=== PATIENT | male | born 1960 | race Caucasian/White ===

== ENCOUNTER 2017-06-12 04:21 | Emergency (ER) | payer OTHER ==
[2017-06-12] MEDS ORDERED: IBUPROFEN 600 MG TAB PO ONE (04:53)
[2017-06-12] MEDS ORDERED: HYDROCODONE/APAP 5/325 TAB PO ONE (04:53)
--- NOTE | 2017-06-12 04:54 | EDPHY ---
H & P Stated Complaint: left lower back pain Time Seen by Provider: 06/12/17 04:49 HPI/ROS: Chief Complaint: Back pain HPI: 57-year-old male with a history of chronic back pain started having worsening pain this morning while sitting on the toilet. Patient states that he thinks he start exacerbating when he was shoveling snow a week ago. He has been having some intermittent aching pain since then. He does have a history of lumbar disc disease and sciatic symptoms in the past. While on the toilet this morning. Was bearing down to have a bowel movement and he had immediate onset of worse pain in the left side of his back. No new numbness or weakness. No fevers or chills. 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 No difficulty urinating. He has been ambulating with discomfort. ROS: 10 point Review of Systems is negative except as noted in the HPI. Family History: non-contributory Physical Exam: Gen: Awake, Alert, No Distress HEENT: Nose: no rhinorrhea Eyes: PERRLA, EOMI Mouth: Moist mucosa Neck: Supple, no JVD Chest: nontender, lungs clear to auscultation Heart: S1, S2 normal, no murmur Abd: Soft, non-tender, no guarding Back: no CVA tenderness, no midline tenderness he has soft tissue tenderness in the left paraspinal region Ext: no edema, non-tender Skin: no rash Neuro: CN II-XII intact, Sensation grossly intact, Strength 5/5 in bilateral upper and lower extremities, has normal sensation, bilateral extremities, strength is 5 in 5 in flexors and extensors. - Personal History Current Tetanus/Diphtheria Vaccine: Yes - Medical/Surgical History Hx Asthma: No Hx Chronic Respiratory Disease: No Hx Diabetes: No Hx Cardiac Disease: No Hx Renal Disease: No Hx Cirrhosis: No Hx Alcoholism: No Hx HIV/AIDS: No Hx Splenectomy or Spleen Trauma: No Other PMH: hernia sx, L5-S1, C5-7 plate - Social History Smoking Status: Never smoked Constitutional: Initial Vital Signs Temperature (C) 36.6 C 06/12/17 04:23 Heart Rate 97 06/12/17 04:23 Respiratory Rate 18 06/12/17 04:23 Blood Pressure 138/97 H 06/12/17 04:23 O2 Sat (%) 96 06/12/17 04:23 O2 Delivery Mode Room Air Allergies/Adverse Reactions: Sulfa (Sulfonamide Antibiotics) Allergy (Verified 06/12/17 04:27) Home Medications: Medication Instructions Recorded NK [No Known Home Meds] 06/12/17 Medical Decision Making ED Course/Re-evaluation: Pain is improved after lighted derm ibuprofen and hydrocodone with acetaminophen. Repeat exam patient is lying down now. He is neurologically intact. He has no red flags for acute cauda equina syndrome or acute neurosurgical emergency. I do not feel that there are any indications for imaging at this time. He is completely neurologically intact and his symptoms are improved. Will discharge with follow up with primary care physician, return for worsening. - Data Points Medications Given: Lidocaine (Lidoderm 5%) 1 ea TD DAILY FATOU Stop: 12/09/17 08:59 Last Admin: 06/12/17 05:00 Dose: 1 ea Discontinued Medications Hydrocodone Bitart/Acetaminophen (Wood 5/325) 1 tab PO EDNOW ONE Stop: 06/12/17 04:54 Last Admin: 06/12/17 05:00 Dose: 1 tab Ibuprofen (Motrin) 600 mg PO EDNOW ONE Stop: 06/12/17 04:54 Last Admin: 06/12/17 05:00 Dose: 600 mg Departure - Departure Disposition: Home, Routine, Self-Care Clinical Impression: Back pain Condition: Good Instructions: Back Pain (ED), Lower Back Exercises (ED) Additional Instructions: Take ibuprofen, 600 mg, 3 times a day. You may also take hydrocodone with acetaminophen for breakthrough pain. Make sure to remain active. Did do not lay in bed or sit in a chair for long periods. It is important to remain active and keep your back moving in order to improve. Please see the attached back exercise instructions. You may reapply a lidoderm patch every day. Follow up with your primary care physician in 2-3 days for further evaluation. Referrals: Williams Portillo [Primary Care Provider] - As per Instructions
[2017-06-12] MEDS ORDERED: LIDOCAINE 5% 1 EA PATCH TD ONE (04:57)
[2017-06-12 06:23] VITALS: BP 126/89; PULSE 74; RESP 16; TEMP 98.1; O2SAT 93
[2017-06-12] MEDS ORDERED: LIDOCAINE 5% 1 EA PATCH TD SCH (09:00)
[2017-06-12] MEDS ORDERED: PATCH REMOVAL 1 EA PATCH TD SCH (21:00)
== END 2017-06-12 06:22 | disposition home or self-care (01) ==
DX: M54.9 Dorsalgia, unspecified (principal)